=== PATIENT | male | born 1995 | race Caucasian/White ===

== ENCOUNTER 2020-09-08 08:54 | Outpatient (CLI) | payer OTHER, SELFPAY ==
--- NOTE | 2020-09-08 09:03 | FL_ITS ---
WS: [id number] ESOPHAGRAM WITH FLUOROSCOPY HISTORY: OTHER SYMPTOMS SIGNS INVOLVING RESPIRATORY SYSTEM. COMPARISON: None available. FLUOROSCOPY TIME: 1.3 minutes. [employer] radiograph: Normal lateral C-spine. Esophagus and swallowing function: Patient swallowed the barium mixture without difficulty. No strict ures or mucosal abnormalities are identified. Gastroesophageal reflux: None. Hiatal hernia: No hiatal hernia. FL/FL barium swallow [id number] IMPRESSION: Normal esophagram.
== END 2020-09-08 08:55 | disposition home or self-care (01) ==
LOC: RAD 09:02
PROVIDERS: Visit Provider Specialist
DX: R09.89 Other specified symptoms and signs involving the circulatory and respiratory systems (principal)
CPT/HCPCS: 74220